=== PATIENT | male | born 1970 | race Caucasian/White ===

== ENCOUNTER → 2018-06-14 | Outpatient (CLI) | payer OTHER | LOC: YCFC.O 09:22 | PROVIDERS: ATTEND Nurse Practitioner Family | DX: Z00.00 Encounter for general adult medical examination without abnormal findings (principal); Z13.220 Encounter for screening for lipoid disorders; Z12.5 Encounter for screening for malignant neoplasm of prostate; Z13.1 Encounter for screening for diabetes mellitus ==

== ENCOUNTER → 2018-06-24 | Outpatient (CLI) | payer OTHER ==
--- NOTE | 2018-06-25 08:33 | RAD ---
EXAM DESCRIPTION: Radiographs of the right Shoulder: CLINICAL HISTORY: PAIN COMPARISON: None TECHNIQUE: AP internal external rotation images. Lateral "Y" image. FINDINGS: No fracture right shoulder. Normal bone density. AC joint narrowing with superior and inferior marginal spurs. Glenohumeral joint maintained. No abnormal radiodense objects in the soft tissues or joint spaces. 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 Electronically signed by: Curt Padilla MD 06/25/2018 8:31 AM CDT
== END ==
LOC: RAD 10:47
PROVIDERS: ATTEND Nurse Practitioner Family
DX: M25.511 Pain in right shoulder (principal); M19.011 Primary osteoarthritis, right shoulder